=== PATIENT | female | born 1980 | race African-American/Black ===

== ENCOUNTER 2017-01-14 16:00 | Day surgery (SDC) | payer BC ==
[2017-01-14 16:31] VITALS: BMI 32.5
[2017-01-14 18:25] LABS: ALT (SGPT) 72 U/L (8-55); AST (SGOT) 73 U/L (5-34); Alkaline Phosphatase 125 U/L (40-150); Anion Gap 11 mmol/L (10-20); BUN (Urea Nitrogen) 9 mg/dL (7.0-18.7); Bilirubin, Total 0.3 mg/dL (0.2-1.2); Calc. Creatinine Clearance 155 mL/min (70-130); Calcium 9.4 mg/dL (7.8-10.44); Carbon Dioxide 25 mmol/L (22-29); Chloride 103 mmol/L (98-107); Estimated GFR-MDRD Greater than 90; Globulin 3.5 g/dL (2.4-3.5); Protein, Total 6.8 g/dL (6.0-8.3)
--- NOTE | 2017-01-14 18:50 | PRG ---
DATE OF SERVICE: 01/14/2017 TIME OF EVALUATION: 17:25. LOCATION: Labor and delivery in triage bed B. REASON FOR EVALUATION: Decreased movement at 37 weeks and body itching. This is a patient of Dr. Cecy Gil. HISTORY OF PRESENT ILLNESS: In brief, this patient is a 36-year-old -Malag[place] G1, P0 with an EDC of 02/04. She is now at 37 weeks. She presents with decreased movement and she called t he office this afternoon and she was advised to come to Labor and Delivery for nonstress test. She denies vaginal bleeding or rupture of membranes. She denies trauma or any other issues. She does c omplain of generalized body itching, also including the soles of the feet. She denies any viral ill nesses. REVIEW OF SYSTEMS: Complete review of systems was checked and is otherwise negative unless specifie d in the HPI. ALLERGIES: KEFLEX. MEDICATIONS IN USE: vitamins and ampicillin for UTI. PAST SURGICAL HISTORY: Includes tonsils and adenoid and Achilles tendon repair on the right foot. PHYSICAL EXAMINATION: VITAL SIGNS: Blood pressure is 114/73, temperature is 98.0, pulse is 71 and O2 sat is 99% on room a ir. GENERAL: Clinically, she is in no acute distress and resting well. ABDOMEN: Abdomen is gravid and size consistent with dates. CERVICAL: Exam is pending, but will be done after dictation. There is no evidence of vaginal bleed ing or ruptured membranes on exam. EXTREMITIES: Examination of the soles of the feet reveals no rash. IMAGING DATA: Nonstress test showed heart rate in the 130s that is category 1. There are no contractions on tocodynamometer. Interventions ordered. I have ordered a complete metabolic profil e to check the liver function tests. I have also ordered bile acids, although these will not be aggie k today. ASSESSMENT: This is a 36-year-old primigravida at 37 weeks with decreased movement, but with a reactive/category 1 heart rate tracing. She also has generalized itching. PLAN: 1. Reassurance given based on the nonstress test. 2. Patient now feels the child moving. 3. I have ordered a complete metabolic profile and bowel acids. 4. Information on possible cholestasis of reviewed. I advised her to return to Dr. Kathy cisneros, [place] of next week to check the results. 5. She may take antihistamine p.r.n. as needed. 6. No evidence of maternal or compromise at this time. 7. Await lab results for now.
--- NOTE | 2017-01-14 18:57 | PRG ---
DATE OF SERVICE: 01/14/2017 Please label this laboratory followup. In brief, The patient's complete metabolic profile has returned. The patient's AST and ALT are elevated at 73 and 72 respectfully. Her creatinine is normal at 0.7. This, in addition to the patient's widespread pruritus (itching) is concerning for cholestasis of . This has been discussed with her. Bowel salts are pending. I will order Actigall medication to help alleviate some of her symptoms. Once again, there is no evidence of compromise at this time. strip has also been reviewed with the patient's nurse. We will write for Actigall 300 mg 1 p.o. t.i.d. MTDD
--- NOTE | 2017-01-14 19:04 | PRG ---
DATE OF SERVICE: 01/14/2017 FOLLOWUP DICTATION In brief, as per my prior dictation, I have made a presumptive diagnosis of cholestasis of based on the patient's body itching and elevated AST and ALT in the 70s. I have also notified Bharath Gil, the patient's primary provider, regarding this finding. She will follow up the bile aci ds next week. Actigall has also been given to the patient.
== END 2017-01-14 18:43 | disposition home or self-care (01) ==
LOC: L&D/OP 16:00
PROVIDERS: ATTEND Obstetrics & Gynecology
DX: O36.8130 Decreased fetal movements, third trimester, not applicable or unspecified (principal); O26.893 Other specified pregnancy related conditions, third trimester; Z3A.37 37 weeks gestation of pregnancy; Z88.8 Allergy status to other drugs, medicaments and biological substances; Z79.899 Other long term (current) drug therapy; Z90.89 Acquired absence of other organs; Z98.890 Other specified postprocedural states
CPT/HCPCS: 36415; 59025; 80053; 82239

== ENCOUNTER 2017-01-14 23:45 | Inpatient (IN) | payer BC, OTHER ==
[~2017-01-14 23:45] MED LIST: Lidocaine 2% PF 10 ML AMP (For Epidural Use) ONE
[2017-01-15 00:13] VITALS: BMI 32.5
[2017-01-15] MEDS: Lactated Ringer's 1,000 ML IV SCH ×3 (00:24→17:34)
[2017-01-15] MEDS ORDERED: Promethazine HCl 25 MG/ML VIAL IM PRN (00:40)
[2017-01-15] MEDS ORDERED: Lidocaine 1% (PF) 30 ML VIAL SC PRN (00:40)
[2017-01-15] MEDS ORDERED: Zolpidem Tartrate 5 MG TAB PO PRN (00:40)
[2017-01-15] MEDS ORDERED: Diphenoxylate HCl/Atropine Tablet PO PRN (00:40)
[2017-01-15] MEDS ORDERED: Carboprost 250 MCG/ML AMP IM PRN (00:40)
[2017-01-15] MEDS ORDERED: Ondansetron HCl/PF 4 MG/2 ML Vial IVP PRN (00:40)
[2017-01-15] MEDS ORDERED: LR / Pitocin 40 units/1000 ml 1,000 ML IV PRN (00:40)
[2017-01-15] MEDS ORDERED: Ibuprofen 800 MG TAB PO PRN (00:40)
[2017-01-15] MEDS ORDERED: Misoprostol 200 MCG TAB PR PRN (00:40)
[2017-01-15] MEDS ORDERED: Acetaminophen 500 MG TAB PO PRN (00:40)
[2017-01-15 00:45] LABS: Hematocrit 33.9 % (36.0-47.0); Mean Platelet Volume 7.7 fL (7.4-10.4); Red Blood Cell (RBC) Count 3.72 mill/uL (4.20-5.40); White Blood Cell (WBC) Count 14.4 thou/uL (4.8-10.8)
[2017-01-15] MEDS: Misoprostol 100 MCG TAB VAG SCH ×5 (02:20→17:35)
--- NOTE | 2017-01-15 08:31 | ULT ---
PRELIMINARY REPORT/[facility]/EMERGENCY AFTER HOURS PROCEDURE: EXAM: US Uterus, Limited EXAM DATE/TIME: Exam ordered 01/15/2017 1:37 AM CLINICAL HISTORY: 36 years old, female; Abnormal findings; Abnormal lab test; Other: Lfts, check position- before angelika ction; Third; TECHNIQUE: Real-time ultrasound of the maternal uterus (limited) with image documentation. COMPARISON: No relevant prior studies available. FINDINGS: Fetus: Single live intrauterine gestation. Position: position is vertex. Heart rate: heart rate 132 beats per minute. Placenta: Placenta is posterior/right lateral and unremarkable. No abruption. Amniotic fluid: Amniotic fluid volume is normal with an AMIE of 19.7 cm. Uterus: Multiple uterine fibroids. Other findings: Biophysical profile score is 8/8. IMPRESSION: 1. Single live intrauterine gestation as above. 2. Biophysical profile score is 8/8. 3. Multiple uterine fibroids. Thank you for allowing us to participate in the care of your patient. Dictated and Authenticated by: Kevin Goode MD 01/15/2017 3:56 AM Central Time ([place] \T\ [place]) FINAL REPORT EMERGENCY AFTER HOURS STUDY ULTRASOUND BIOPHYSICAL PROFILE: HISTORY: 36-year-old female in third trimester of with abnormal laboratory tests. Clearance examina tion prior to induction of labor. Evaluate presentation. FINDINGS: breathin tone: 2 movement: 2 Amniotic fluid volume: 2 lie is cephalic. Multiple uterine fibroids are demonstrated. This report agrees with the preliminary report by Ampar[facility]. IMPRESSION: 1. Normal biophysical profile score of 8/8, excluding the non-stress test. 2. Multiple uterine leiomyomata (fibroids). 3. Cephalic lie. bartolome [] POS: [facility]
--- NOTE | 2017-01-15 09:40 | PDOC.LDHP ---
Labor and Delivery H&P Chief complaint: other (IOL due to cholestasis ) HPI: 36 yo G1 @ 37w1d by LMP c/w 7 week sono admit for IOL due to cholestasis of . Pt presented with c/o severe itching on the soles of her feet that woke her from sleep on night and was found to have elevated LFTs. Hepatitis panel wnl and pt has no other sx to suggest alternative cause of transaminitis and pruritis. Current gestational age (weeks): 37 Due date: 02/04/17 Dating criteria: last menstrual period Grav: 1 Para: 0 Current complications: other (intrahepatic cholestasis of ) Abnormal US findings: No Past Medical History: Denies Current medications: pre- vitamins Previous surgical history: other (Tosillectomy, achilies repair ) Allergies/Adverse Reactions: Allergies Allergy/AdvReac Type Severity Reaction Status Date / Time cephalexin monohydrate Allergy rash, Verified 01/15/17 00:05 [From [email or web address]] Social history: none - Physical Exam Vital signs reviewed and normal: yes General: NAD Heart: RRR Lungs: nonlabored breathing Extremeties: no edema (EFW 7.5 lbs) FHT: category 1 (120s, mod carmen, +accels, no decels ) [place] contractions every: q2-3 min - Vaginal Exam cm dilated: 1 (cepahlic per sono ) Effacement: 0% Station: -3 - OB Labs Blood type: AB RH: positive HIV: negative RPR: negative HEPSAg: negative 1 hour GCT: negative GBS: negative Urine drug screen: not done Additional Labs: Sickle cell screen negative - Assessment 37w1d IUP IHCP - Plan -: Reviewed labs and sx with pt. Pt has not other source for transaminitis and with sx of pruritis, meeting criteria for IHCP. Bile acids are still pending and will not be available for 3-5 days. Due to diagnosis recommended delivery as pt now > 37 weeks and she is amenable to plan. Started cervical ripening for IOL, s/p cytotec #2. Continue to monitor closely.
[2017-01-15] MEDS ORDERED: Oxytocin 10 UNITS/ML VIAL ONE (16:28)
[2017-01-15] MEDS ORDERED: Fentanyl 4 mcg/Marc 0.1% Cadd 100 ML ONE (16:28)
[2017-01-15] MEDS ORDERED: LR 500 ML/Oxytocin 10 units 500 ML ONE (18:36)
[2017-01-16] MEDS ORDERED: Fentanyl 4 mcg/Marc 0.1% Cadd 100 ML ONE ×2 (00:01→07:18)
[2017-01-16] MEDS: Misoprostol 100 MCG TAB VAG SCH ×3 (07:16→19:31)
[2017-01-16] MEDS: Lactated Ringer's 1,000 ML IV SCH ×3 (07:17→14:39)
[2017-01-16] MEDS ORDERED: Acetaminophen 325 MG TAB PO PRN (08:52)
[2017-01-16] MEDS ORDERED: ePHEDrine/0.9% NaCl/PF SYRINGE 50 mg/10 ml SLOW IVP PRN (08:52)
[2017-01-16] MEDS ORDERED: Naloxone HCl 0.4 mg/ml Vial IVP PRN ×2 (08:52)
[2017-01-16] MEDS ORDERED: Lactated Ringer's 500 ML IV PRN (08:52)
[2017-01-16] MEDS ORDERED: Ondansetron HCl/PF 4 MG/2 ML Vial IVP PRN ×2 (08:52→22:06)
[2017-01-16] MEDS ORDERED: diphenhydrAMINE HCl 50 MG/ML 1 ML VIAL IVP PRN (08:52)
[2017-01-16] MEDS ORDERED: Eucerin (Mineral Oil/Petrolatum,White) 30 gm Jar TOP PRN (08:52)
[2017-01-16] MEDS ORDERED: Promethazine HCl 25 MG/ML VIAL IM PRN ×2 (08:52→22:06)
[2017-01-16] MEDS ORDERED: Fentanyl 4mcg/Marcaine 0.1% Cassette 100 ML EPIDURAL SCH (09:00)
[2017-01-16] MEDS ORDERED: Communication Order-Pharmacy FS SCH (09:00)
--- NOTE | 2017-01-16 10:03 | PDOC.LDPN ---
Labor & Delivery Progress Note - Subjective Subjective: comfortable - Objective Vital signs reviewed and normal: yes General: NAD Uterine fundus: non tender SVE: cephalic Dilation: 5 Effacement: 50% Station: -2 FHT: category 1 (120s, mod carmen, +accels, no decels ) [place] contractions every: q5-8 min AROM: clear fluid - Assessment (1) 37 weeks gestation of Code(s): Z3A.37 - 37 WEEKS GESTATION OF Current Visit: Yes Status : Acute (2) Cholestasis during Code(s): O26.619 - LIVER AND BILIARY TRACT DISORD IN , UNSP TRIMESTER; K83.1 - OBSTRUCTION OF BILE DUCT Current Visit: Yes Status: Acute -: Cook balloon out this morning @ 0730. AROM done and starting pitocin for induction. Monitor for change. Plan to place internals if unchanged on next exam.
[2017-01-16] MEDS ORDERED: Lidocaine 1% (PF) 30 ML VIAL ONE (18:57)
[2017-01-16] MEDS ORDERED: LR / Pitocin 40 units/1000 ml 1,000 ML ONE (18:57)
[2017-01-16 19:18] LABS: pH (venous) 7.32 (7.25-7.35)
--- NOTE | 2017-01-16 19:30 | PDOC.OPDEL ---
OB Operative/Delivery Note Delivery Dr/Surgeon: Cecy Gil DO Pre-Delivery Diagnosis: medically indicated induction (Intrahepatic cholestasis of ) Procedure/Post Delivery Dx: spontaneous vaginal delivery Weeks gestation: 37 Anesthesia: epidural - Findings A Sex: male - 5 min: 9 (apgars 8/9) - Additional Findings/Plan Placenta delivered: spontaneous Repaired Obstetrical Laceration: 1st degree Estimated blood loss: 300 cc Compilations/Other Findings: delivered in DA position without difficulty. Variable decels noted prior to delivery during stage 2 of labor, infant with good tone and cry upon delivery. Cord gases obtained, results pending. Post delivery plan: routine recovery
[2017-01-16] MEDS ORDERED: traMADol HCl 50 MG TAB PO PRN ×2 (22:06)
[2017-01-16] MEDS ORDERED: Misoprostol 200 MCG TAB VAG SCH (22:06)
[2017-01-16] MEDS ORDERED: LR / Pitocin 40 units/1000 ml 1,000 ML IV SCH (22:06)
[2017-01-16] MEDS ORDERED: Bisacodyl 10 MG SUPP PR PRN (22:06)
[2017-01-16] MEDS ORDERED: Milk Of Magnesia 30 ML UDCUP PO PRN (22:06)
[2017-01-16] MEDS ORDERED: diphenhydrAMINE HCl 25 MG CAP PO PRN (22:06)
[2017-01-16] MEDS ORDERED: Benzocaine/Menthol 20-0.5% 60 ML CAN TOP PRN (22:06)
[2017-01-17 06:08] LABS: Hematocrit 28.6 % (36.0-47.0); Mean Platelet Volume 8.4 fL (7.4-10.4); Red Blood Cell (RBC) Count 3.12 mill/uL (4.20-5.40); White Blood Cell (WBC) Count 19.7 thou/uL (4.8-10.8)
[2017-01-17] MEDS: Misoprostol 100 MCG TAB VAG SCH (08:20)
[2017-01-17] MEDS: Docusate (Surfak) 240 MG CAP PO SCH ×4 (08:20→21:42)
--- NOTE | 2017-01-17 08:31 | PDOC.PP ---
Post Progress Note Post Day #: 1 -: Doing well. Minimal lochia and pain. PO intake tolerated: yes Flatus: yes Ambulation: yes Vital Signs (12 hours) Temp Pulse Resp BP 01/17/17 07:35 98.5 F 68 18 01/17/17 04:00 98.5 F 68 18 100/60 01/17/17 02:37 99.0 F 65 18 95/63 01/17/17 00:06 99.4 F 68 18 110/55 L 01/16/17 23:15 100.1 F H 70 18 112/55 L 01/16/17 21:30 99.0 F 65 18 115/58 L Weight Weight 202 lb - Physical Examination General: NAD Cardiovascular: RRR Respiratory: clear to ausculation bilateral Abdominal: no distention, appropriately TTP Fundus firm & at: below umbilius Extremities: negative homans (B) Skin: no rash Neurological: no gross focal deficits Psychiatric: A&Ox3 Result Diagrams: 01/17/17 04:51 Additional Labs: Post Labs Blood Type AB POSITIVE 01/15/17 00:28 Hep Bs Antigen Non-Reactive S/CO (NonReactive) 01/15/17 00:28 (1) 37 weeks gestation of Code(s): Z3A.37 - 37 WEEKS GESTATION OF Status: Resolved (2) Cholestasis during Code(s): O26.619 - LIVER AND BILIARY TRACT DISORD IN , UNSP TRIMESTER; K83.1 - OBSTRUCTION OF BILE DUCT Status: Resolved (3) Vaginal delivery Code(s): O80 - ENCOUNTER FOR FULL-TERM UNCOMPLICATED DELIVERY Status: Acute (4) Anemia Code(s): D64.9 - ANEMIA, UNSPECIFIED Status: Acute Qualifiers: Anemia type: unspecified type Qualified Code(s): D64.9 - Anemia, unspecified - Assessment/Plan Doing well post . Noted leukocytosis rising, afebrile and no signs of infection, suspect only due to delivery. Plan for d/c home tomorrow due to evening delivery and G1
[2017-01-17] MEDS: Ibuprofen 800 MG TAB PO PRN ×3 (08:43→21:37)
[2017-01-17] MEDS: Prenatal Vitamin 1 TAB PO SCH (08:43)
[2017-01-17] MEDS ORDERED: Iron Polysaccharides Complex 150 MG CAP PO SCH (08:45)
[2017-01-17] MEDS ORDERED: FLU VACC QS2017-18 36 mo. & older 0.5 ML SYRINGE IM ONE (09:00)
[2017-01-17] MEDS: Iron Polysaccharides Complex 150 MG CAP PO SCH (09:21)
[2017-01-18] MEDS: Prenatal Vitamin 1 TAB PO SCH (07:53)
[2017-01-18] MEDS: Iron Polysaccharides Complex 150 MG CAP PO SCH (07:54)
[2017-01-18] MEDS: Ibuprofen 800 MG TAB PO PRN (07:54)
[2017-01-18] MEDS: Docusate (Surfak) 240 MG CAP PO SCH (07:55)
[2017-01-18 08:05] VITALS: BP 127/60; TEMP 98.5
--- NOTE | 2017-01-18 09:07 | PDOC.PP ---
Post Progress Note Post Day #: 2 -: Doing well. reports some back pain, improved with meds. Minimal lochia. PO intake tolerated: yes Flatus: yes Ambulation: yes Vital Signs (12 hours) Temp Pulse Resp BP Pulse Ox 01/18/17 08:00 98.5 F 70 16 127/60 100 01/18/17 04:00 98.4 F 73 18 01/18/17 00:00 98.4 F 73 18 Weight Weight 202 lb - Physical Examination General: NAD Cardiovascular: RRR Respiratory: clear to ausculation bilateral Abdominal: no distention, appropriately TTP Fundus firm & at: below umbilius Extremities: negative homans (B) Skin: no rash Neurological: no gross focal deficits Psychiatric: A&Ox3 Result Diagrams: 01/17/17 04:51 Additional Labs: Post Labs Blood Type AB POSITIVE 01/15/17 00:28 Hep Bs Antigen Non-Reactive S/CO (NonReactive) 01/15/17 00:28 (1) 37 weeks gestation of Code(s): Z3A.37 - 37 WEEKS GESTATION OF Status: Resolved (2) Cholestasis during Code(s): O26.619 - LIVER AND BILIARY TRACT DISORD IN , UNSP TRIMESTER; K83.1 - OBSTRUCTION OF BILE DUCT Status: Resolved (3) Vaginal delivery Code(s): O80 - ENCOUNTER FOR FULL-TERM UNCOMPLICATED DELIVERY Status: Acute (4) Anemia Code(s): D64.9 - ANEMIA, UNSPECIFIED Status: Acute Qualifiers: Anemia type: unspecified type Qualified Code(s): D64.9 - Anemia, unspecified - Assessment/Plan Stable for d/c home. Instructions given. F/U 6 weeks.
[2017-01-18] MEDS ORDERED: Measles/Mumps/Rubella 10 MCG/0.5 ML VIAL SC ONE (16:00)
== END 2017-01-18 14:45 | disposition home or self-care (01) | DRG 775 ==
LOC: L&D 23:45 → 3SW 01-16 22:39
PROVIDERS: ADMIT Obstetrics & Gynecology; ATTEND Obstetrics & Gynecology
PROC: 0U7C7ZZ Dilation of Cervix, Via Natural or Artificial Opening (ICD-10-PCS; 2017-01-15)
PROC: 3E0P7VZ Introduction of Hormone into Female Reproductive, Via Natural or Artificial Opening (ICD-10-PCS; 2017-01-15)
PROC: 3E0P3VZ Introduction of Hormone into Female Reproductive, Percutaneous Approach (ICD-10-PCS; 2017-01-15)
PROC: 10E0XZZ Delivery of Products of Conception, External Approach (ICD-10-PCS; principal; 2017-01-16)
PROC: 10907ZC Drainage of Amniotic Fluid, Therapeutic from Products of Conception, Via Natural or Artificial Opening (ICD-10-PCS; 2017-01-16)
PROC: 0HQ9XZZ Repair Perineum Skin, External Approach (ICD-10-PCS; 2017-01-16)
DX: O26.62 Liver and biliary tract disorders in childbirth (principal); K83.1 Obstruction of bile duct; Z37.0 Single live birth; Z3A.37 37 weeks gestation of pregnancy; O70.0 First degree perineal laceration during delivery; O76 Abnormality in fetal heart rate and rhythm complicating labor and delivery
CPT/HCPCS: 36415; 59025; 76819; 80053; 80074; 82239; 82805; 85027; 86780; 86850; 86900; 86901; 87389; J2001; J2405; J2590; J7120